=== PATIENT | female | born 1995 | race Caucasian/White ===

== ENCOUNTER 2018-08-21 20:50 | Emergency (ER) | payer OTHER ==
[~2018-08-21] VITALS: Ht 157.5 cm; Wt 49.9 kg
[2018-08-21 20:54] VITALS: BP_SYST 150
--- NOTE | 2018-08-21 20:58 | NUR ---
Patient to ER bed 8 for evaluation.
--- NOTE | 2018-08-21 20:59 | NUR ---
Patient to ER via triage for evaluation of sore throat and fever x 4-5 days, patient is awake, alert and oriented in no acute distress, able to ambulate without difficulty with slow, steady gait, vital signs table, respirations even and unlabored, skin warm and dry to touch. Patient able to ambulate without difficulty to bed 8 with friend at her side. No resp distress noted. Awaiting evaluation by ER MD, will continue to observe and assess.
--- NOTE | 2018-08-21 21:00 | NUR ---
JAVIER Carter at bedside examining patient.
[2018-08-21 21:06] VITALS: BP_SYST 150
--- NOTE | 2018-08-21 21:06 | NUR ---
Patient given written and verbal discharge instructions and verbalizes understanding. ER MD discussed with patient the results and treatment provided. Patient in stable condition. ID arm band removed. Rx of ibuprofen and amoxicillin given. Patient educated on pain management and to follow up with PMD. Pain Scale 0. Opportunity for questions provided and answered. Medication side effect fact sheet provided.
== END 2018-08-21 21:06 | disposition home or self-care (01) ==
LOC: SED 20:50
DX: J02.0 Streptococcal pharyngitis (principal); R03.0 Elevated blood-pressure reading, without diagnosis of hypertension
CPT/HCPCS: 99283